=== PATIENT | male | born 1985 | race Caucasian/White ===

== ENCOUNTER 2019-09-25 05:35 | Day surgery (SDC) | payer OTHER ==
[~2019-09-25] VITALS: Ht 160 cm; Wt 61.2 kg
--- NOTE | ~2019-09-25 | OR ---
[facility] [address], [place] [address] Draft DATE OF OPERATION: 09/25/2019 SURGEON: Geo Card MD PREOPERATIVE DIAGNOSIS: Carpal tunnel syndrome, left. POSTOPERATIVE DIAGNOSIS: Carpal tunnel syndrome, left. PROCEDURE PERFORMED: Release of left carpal tunnel. ANESTHESIA: Mary block with sedation. SPECIMENS AND COMPLICATIONS: There were no specimens or complications. TOURNIQUET TIME: About 25 minutes. WHAT WAS DONE: The patient was taken to the operating room. After anesthesia was induced and airway secured, the patient was positioned, prepped, and draped in a routine sterile fashion. The Mary block had already been administered and the tourniquet has already been elevated. We then made a volar incision beginning at the distal wrist flexion crease extending distally for about 2 cm in line with the radial aspect of the 4th ray. Skin was divided sharply. Subcutaneous tissue was bluntly spread. A small self-retaining retractor was placed. The transverse volar carpal ligament was released with the tip of a #15 blade. We then put a Ragnell retractor under the distal skin flap lifted up and released the rest of the nerve out to the mid palm under direct vision. We then put the Ragnell onto the proximal flap and released the distal 3 cm of the antebrachial fascia to the ulnar aspect of the nerve at which point, we had complete decompression of significantly compromised nerve. The wound was gently irrigated and closed in standard fashion. Sterile dressings applied. The patient was awakened and taken to recovery room, where he arrived in stable condition. Counts were correct and antibiotic protocols were followed. PATIENT NAME: MARISA VALENZUELA OPERATIVE REPORT DATE OF : 85 REPORT #: [id number] PHYSICIAN: GEO CARD MD PCP: OLEG VITALE MD REPORT IS CONFIDENTIAL AND NOT TO BE RELEASED WITHOUT AUTHORIZATION [address] [place], [place] [address] Draft MD JUHI Silva/MAIAL /[id number] Copies: ~ PATIENT NAME: MARISA VALENZUELA OPERATIVE REPORT DATE OF : 85 REPORT #: [id number] PHYSICIAN: GEO CARD MD PCP: OLEG VITALE MD REPORT IS CONFIDENTIAL AND NOT TO BE RELEASED WITHOUT AUTHORIZATION
[2019-09-25] MEDS ORDERED: PROAIR HFA8.5 GM INH (05:54)
--- NOTE | 2019-09-25 08:31 | NUR ---
09/25/19 0831 Elke Lee 0758 PT ARRIVED IN PACU WIDE AWAKE WITH NO C/O'S. L ARM ELEVATED ON PILLOWS WITH ICE PRESENT. 0810 TALKING TO STAFF. 0820 SITTING AT SIDE OF BED GETTING DRESSED WITH GUARDS STAND BY ASSIST. 0825 DC INSTRUCTIONS GIVEN. LEFT VIA W/C.
== END 2019-09-25 08:25 | disposition home or self-care (01) ==
LOC: OPS 05:35 → DS 05:35 → OPS 06:45 → DS 06:45 → OPS 08:25
PROVIDERS: Orthopaedic Surgery
PROC: 01N50ZZ Release Median Nerve, Open Approach (ICD-10-PCS; principal; 2019-09-25 06:45)
DX: G56.03 Carpal tunnel syndrome, bilateral upper limbs (principal)
CPT/HCPCS: J0690; J1885; J2001; J2250; J2704; J7121

== ENCOUNTER 2021-05-05 12:03 | Emergency (ER) | payer OTHER ==
[~2021-05-05] VITALS: Ht 160 cm; Wt 68.0 kg
[~2021-05-05 12:03] MED LIST: PROAIR HFA8.5 GM INH
[2021-05-05] MEDS ORDERED: BLEPH-105 ML OPTH (15:17)
== END 2021-05-05 15:30 | disposition home or self-care (01) ==
LOC: ED 12:03
DX: S05.02XA Injury of conjunctiva and corneal abrasion without foreign body, left eye, initial encounter (principal); X18.XXXA Contact with other hot metals, initial encounter; J45.909 Unspecified asthma, uncomplicated; Z87.891 Personal history of nicotine dependence
CPT/HCPCS: 99283

== ENCOUNTER 2024-03-16 19:36 | Emergency (ER) | payer OTHER ==
[~2024-03-16] VITALS: Ht 160 cm; Wt 66.0 kg
[~2024-03-16 19:36] MED LIST changes: +ALL DAY ALLERGY10 M3 PO; +BLEPH-105 ML OPTH; +FLUTICASONE-SA1 EAC3 INH; +NASACORT10.8 ML NAS
[2024-03-16] MEDS ORDERED: TETRACAINE HCL 0.5% 4 ML BTL OU SCH (20:45)
[2024-03-16 21:14] VITALS: BP 123/99
== END 2024-03-16 21:14 | disposition home or self-care (01) ==
LOC: ED 19:36
DX: T15.81XA Foreign body in other and multiple parts of external eye, right eye, initial encounter (principal); J45.909 Unspecified asthma, uncomplicated; Z87.891 Personal history of nicotine dependence; Z79.899 Other long term (current) drug therapy
CPT/HCPCS: 65205; 99283-25